=== PATIENT | male | born 1940 ===

== ENCOUNTER 2022-07-10 10:08 | Inpatient (IN) | payer MEDICARE ==
[~2022-07-10] VITALS: Ht 177.8 cm; Wt 106.4 kg
[2022-07-10] VITALS (12 sets, daily range): BP systolic 101–149; BP diastolic 69–96
[2022-07-10 14:07] LABS: Hematocrit 43.6 % (37.0-53.0); Hemoglobin 14.6 g/dL (13.5-17.5); Mean Platelet Volume 10.4 fL (9.1-12.4); Platelet Count 285 K/mm3 (150-400)
[2022-07-10 14:23] LABS: Anti-Xa UFH, PHA Monitoring 0.39 IU/mL; International Normalized Ratio 1.08; Prothrombin Time Results 11.3 Sec (9.7-11.5)
[2022-07-10 14:24] LABS: CHOL/HDL RATIO 2.5; Cholesterol 109 mg/dL (50-200); HDL Cholesterol 43 mg/dL (>39); LDL/HDL RATIO 1.1; Low Density Lipoprotein Chol 46 mg/dL (0-110); Triglycerides 102 mg/dL (30-160); Very Low Density Lipoprot Chol 20 mg/dL (6-32)
--- NOTE | 2022-07-10 15:54 | NUR ---
PT ARRIVED FROM [place] AT 1245 PLACED ON HYDRAULIC [employer] MECH[employer]IC AND ORIENTED TO ROOM/UNIT. NO FAMILY AT BEDSIDE. PT IS A/O, HEPARIN AND NITRO INFUSING. DENIES CP BUT C/O SHOULDER PAIN WHILE NITRO DRIP OFF DUE TO CHANGING PUMPS. SHOULDER PAIN RESOLVED WHEN NITRO RESTARTED. DR. LOTT TO BEDSIDE TO EVALUATE PT. CARDIOLOGY REFERRAL MADE BY HOSPITALIST. DR. SOLOMON TO BEDSIDE. STAT EKG DONE. DR. SOLOMON CONSENTED PT AND HE WAS TRANSFERRED TO [facility] AT 1415. PT UPDATED VIA PHONE OF CURRENT PLAN. RN TO CONTINUE TO MONITOR.
--- NOTE | 2022-07-10 20:00 | NUR ---
ASSUMED CARE PT BACK FROM [employer] AT THIS TIME S/P PCI WITH STENTS X 2. PT IS AWAKE AND ALERT, BUT IS CONFUSED. ORIENTED TO SELF ONLY. PULLING AT CLOTHING/LINEN AND CORDS. MUMBLED CONFUSED CONVERSATION- UNABLE TO REORIENT AT THIS TIME. RIGHT RADIAL TR BAND IN PLACE WITH ARMBOARD. SITE IS SOFT. NO BLEEDING NOTED. PT DENIES NUMBNESS/TINGLING. CMS INTACT. RIGHT FEMORAL CENTRAL LINE IN PLACE. 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 SEE SHIFT ASSESSMENT FOR FULL ASSESSMENT.
[2022-07-10 21:10] LABS: CPK Creatine Kinase 202 U/L (39-308)
[2022-07-11] VITALS (9 sets, daily range): BP systolic 123–140; BP diastolic 72–84
[2022-07-11] MEDS ORDERED: ASPI81CH PO (01:06)
[2022-07-11] MEDS ORDERED: UBID10 PO (01:06)
[2022-07-11] MEDS ORDERED: ATOR10 (01:06)
[2022-07-11] MEDS ORDERED: LOSA25 PO (01:06)
[2022-07-11] MEDS ORDERED: METO25 PO (01:07)
[2022-07-11 04:52] LABS: BASOPHILS ABSOLUTE AUTO 0.03 K/mm3 (0.00-0.23); BASOPHILS PERCENT AUTO 0 % (0-2); EOSINOPHILS ABSOLUTE AUTO 0.03 K/mm3 (0.00-0.68); EOSINOPHILS PERCENT AUTO 0 % (0-6); Hematocrit 41.9 % (37.0-53.0); Hemoglobin 13.8 g/dL (13.5-17.5); IMMATURE GRAN ABSOLUTE AUTO 0.04 K/mm3 (0.00-0.10); IMMATURE GRAN PERCENT AUTO 0 % (0-1); LYMPHOCYTES ABSOLUTE AUTO 1.16 K/mm3 (0.84-5.20); LYMPHOCYTES PERCENT AUTO 13 % (21-46); MONOCYTES ABSOLUTE AUTO 0.71 K/mm3 (0.16-1.47); MONOCYTES PERCENT AUTO 8 % (4-13); Mean Corpuscular HGB 30.8 pg (26.0-34.0); Mean Corpuscular HGB Conc 32.9 g/dL (31.5-36.5); Mean Corpuscular Volume 94 fL (80-100); Mean Platelet Volume 10.4 fL (9.1-12.4); NEUTROPHILS ABSOLUTE AUTO 7.29 K/mm3 (1.96-9.15); NEUTROPHILS PERCENT AUTO 79 % (41-73); Platelet Count 279 K/mm3 (150-400); RDW Coefficient Variation 12.5 % (11.7-14.2); RDW Standard Deviation 43.6 fL (35.1-46.3); Red Blood Cell Count 4.48 M/mm3 (4.30-5.90); White Blood Cell Count 9.26 K/mm3 (4.00-11.30)
[2022-07-11 05:10] LABS: Alanine Aminotransfer (ALT/SGP 24 U/L (12-78); Albumin, Blood 3.2 g/dL (3.4-5.0); Alk Phos 29 U/L (50-136); Anion Gap 7 mmol/L (6-16); Aspartate Aminotrans (AST/SGOT 24 U/L (12-37); Bilirubin, Total 1.1 mg/dL (0.1-1.0); Blood Urea Nitrogen 13 mg/dL (8-24); Bun/Creatinine Ratio 19.1 (12.0-20.0); CHOL/HDL RATIO 2.6; CO2, Blood 23 mmol/L (21-32); CPK Creatine Kinase 290 U/L (39-308); Calcium, Blood 8.2 mg/dL (8.5-10.1); Chloride, Blood 111 mmol/L (98-108); Cholesterol 103 mg/dL (50-200); Creatinine, Blood 0.68 mg/dL (0.60-1.20); Globulin, Blood 3.1 g/dL (2.2-4.0); Glomerular Filtration Rate 93 (60-); Glucose, Blood 107 mg/dL (70-99); HDL Cholesterol 39 mg/dL (>39); LDL/HDL RATIO 0.9; Low Density Lipoprotein Chol 36 mg/dL (0-110); Potassium, Blood 3.8 mmol/L (3.5-5.5); Sodium, Blood 141 mmol/L (136-145); Total Protein, Blood 6.3 g/dL (6.4-8.2); Triglycerides 142 mg/dL (30-160); Very Low Density Lipoprot Chol 28 mg/dL (6-32)
--- NOTE | 2022-07-11 06:09 | NUR ---
SHIFT SUMMARY NO ACUTE CHANGES DURING NOC. RESTING QUIETLY WHEN UNDISTURBED. RIGHT RADIAL ACCESS SITE WITH OPSITE INTACT. SITE IS SOFT AND HAS SMALL AMOUNT OF BRUISING. ARMBOARD IS IN PLACE. VSS T/O NOC. MEDICATED WITH TYLENOL 650MG PO X 2 DOSES FOR C/O SHOULDER AND LOW BACK PAIN AND WITH FENTANYL 25MCG IV X 1 DOSE FOR SAME. PT IS ABLE TO REPOSITION SELF IN BED. VOIDING WITHOUT DIFFICULTY. 1L NS INFUSED DURING NOC. WILL REPORT TO ONCOMING RN WHEN AVAILABLE.
--- NOTE | 2022-07-11 10:25 | NUR ---
"Spiritual Care | Pt. request Pt. is aweake in bed and welcomes my visit. Pt. is pleasant and rapport is established. Pt. displayed evidence of being a man of willy so matters of willy and belief were considered. Pt. displays evidence of engagement, awareness, and hope. Pt. verbalizes an expectation of discharge later today, and that his son would be picking him up for his ride home to [place]. Visit was briefly interupted by medical staff, so this dyeing machine tender excused himself. After ICU rounds, I returned to Pt. and prayed with him. Pt. verbalized gratitude for the spiritual care visit."
[2022-07-11] MEDS ORDERED: ATOR40TA PO (12:51)
[2022-07-11] MEDS ORDERED: TICA90TA PO (12:51)
[2022-07-11 13:39] LABS: CPK Creatine Kinase 301 U/L (39-308)
--- NOTE | 2022-07-11 15:40 | NUR ---
SUMMARY PT A/O X4. NO CP OR PRESSURE. R RADIAL ACCESS SITE IS SOFT AND NON TENDER. ARMBOARD IN PLACE AND PT EDUCATED TO NOT PUSH, PULL, OR LIFT WITH R HAND. HAD SOME BILAT SHOULDER PAIN THAT WAS RESOLVED WITH TYLENOL. TROPONIN DRAWN THIS AFTERNOON AND RESULTS CALLED TO DR. SOLOMON. PT OKAY'D TO BE DISCHARGED. NEW MEDS CALLED TO [facility] PER PT. PT WHEELED OUT IN W/C, SON ACCOMPANIES. NO SIGN OF DISTRESS.
== END 2022-07-11 15:45 | disposition home or self-care (01) | DRG 246 ==
LOC: ICUE 10:08 → ICUW 12:29
PROVIDERS: Internal Medicine Cardiovascular Disease; ADMIT Internal Medicine
PROC: 027135Z Dilation of Coronary Artery, Two Arteries with Two Drug-eluting Intraluminal Devices, Percutaneous Approach (ICD-10-PCS; principal; 2022-07-10)
PROC: 02C03Z7 Extirpation of Matter from Coronary Artery, One Artery, Orbital Atherectomy Technique, Percutaneous Approach (ICD-10-PCS; 2022-07-10)
PROC: 4A023N7 Measurement of Cardiac Sampling and Pressure, Left Heart, Percutaneous Approach (ICD-10-PCS; 2022-07-10)
PROC: B211YZZ Fluoroscopy of Multiple Coronary Arteries using Other Contrast (ICD-10-PCS; 2022-07-10)
PROC: B24BZZ3 Ultrasonography of Heart with Aorta, Intravascular (ICD-10-PCS; 2022-07-10)
DX: T82.855A Stenosis of coronary artery stent, initial encounter (principal); I21.A9 Other myocardial infarction type; Z68.1 Body mass index [BMI] 19.9 or less, adult; I10 Essential (primary) hypertension; E66.9 Obesity, unspecified; I25.10 Atherosclerotic heart disease of native coronary artery without angina pectoris; M54.50 Low back pain, unspecified; Z98.49 Cataract extraction status, unspecified eye; Z98.890 Other specified postprocedural states; Z88.6 Allergy status to analgesic agent
CPT/HCPCS: 36415; 76937; 80053; 80061; 82550; 84484; 85014; 85018; 85025; 85049; 85347; 85520; 85610; 85730; 92924; 93005; 93010; 93458; 99152; 99153; A9270; C1724; C1725; C1751; C1753; C1761; C1769; C1874; C1887; C1894; C8929; C9600; C9601; J1644; J2250; J2704; J3010; J3246; J7030; J7040; J7050; Q9957; Q9967